=== PATIENT | male | born 1950 ===

== ENCOUNTER 2025-03-21 08:00 | Outpatient (CLI) | payer OTHER ==
[~2025-03-21] VITALS: Ht 172.7 cm; Wt 88.5 kg
[2025-03-21 08:12] LABS: BASO % 0.8 % (0.1-1.2); EOS # 0.27 (0.04-0.54); EOS % 5.6 % (0.7-7.0); LYMPH # 2.53 (1.18-3.74); LYMPH % 52.1 % (19.3-53.1); MEAN PLATELET VOLUME 10.00 fl (9.4-12.4); MONO # 0.67 (0.24-0.82); NEUT # 1.34 (1.56-6.13); NEUT % 27.5 % (34.0-71.1); RED CELL DISTRIBUTION WIDTH 13.2 % (11.6-14.4)
[2025-03-21 08:13] VITALS: BP 141/61
[2025-03-21] MEDS ORDERED: LIPITOR20 MG (08:14)
[2025-03-21] MEDS ORDERED: RAMIPRIL10 MG PO (08:14)
[2025-03-21] MEDS ORDERED: VIAGRA100 MG PO (08:15)
[2025-03-21] MEDS ORDERED: ELIQUIS5 MG PO (08:15)
[2025-03-21] MEDS ORDERED: ZYRTEC10 M3 PO (08:15)
[2025-03-21] MEDS ORDERED: AMLODIPINE-OLM1 EAC1 PO (08:16)
[2025-03-21 08:18] LABS: URINE APPEARANCE Clear; URINE BILIRRUBIN Negative (NEGATIVE); URINE BLOOD Negative; URINE COLOR Yellow; URINE GLUCOSE Negative (NEGATIVE); URINE KETONE Negative (NEGATIVE); URINE LEUKOCYTE Negative; URINE NITRATE Negative; URINE PROTEIN Negative (NEGATIVE); URINE UROBILINOGEN 0.2 E.U./dl
[2025-03-21 08:21] LABS: URINE RBC 21.4 uL (0.0-20.8)
[2025-03-21 08:22] LABS: MONO % 13.8 % (4.7-12.5)
[2025-03-21 08:35] LABS: INR 1.17
[2025-03-21 09:03] LABS: URINE BACTERIA 1.1 uL (0.0-1933); URINE CAST 0.00 uL (0.0-1.40); URINE EPITHELIAL CELLS 0.3 uL (0.0-38.8); URINE WBC 0.6 uL (0.0-23.2)
[2025-03-21 09:10] LABS: BUN CREA RATIO 16.0 (7.0-25.0); CREATININE SERUM 1.14 mg/dL (0.70-1.30); GFR 63.14; GLUCOSE FASTING 117.0 mg/dL (65-100); OSMOLALITY SERUM 286.0 MOSM/KG (275-295)
== END 2025-03-21 08:05 | disposition home or self-care (01) ==
LOC: RAD 08:00 → EDSTATUS 03-29 07:00 → CIR.AMB 03-29 07:00
PROVIDERS: ATTEND Otolaryngology Otology & Neurotology
DX: H73.821 Atrophic nonflaccid tympanic membrane, right ear (principal); H65.21 Chronic serous otitis media, right ear